=== PATIENT | male | born 1980 | race Caucasian/White ===

== ENCOUNTER 2017-11-10 17:09 | Emergency (ER) | payer OTHER ==
[2017-11-10] MEDS ORDERED: KETOROLAC 30 MG/ML 1 ML VIAL IVP STA (17:47)
[2017-11-10] MEDS ORDERED: SODIUM CHLORIDE 0.9% 1,000 ML IV ONE (17:47)
--- NOTE | 2017-11-10 17:57 | ED ---
Fever HPI - General Chief Complaint: Fever Stated Complaint: Flu Time Seen by Provider: 11/10/17 17:20 Source: patient Mode of arrival: ambulatory Limitations: no limitations - History of Present Illness Initial Comments: 37-year-old male patient presents to the emergency department today for evaluation of fever and joint pain. Patient states that symptoms started suddenly yesterday. States that he has shooting pains radiating from every joint in his body. He states that he has had fevers, he has been taking Excedrin Migraine to help with his symptoms. He states that he feels generally unwell doesn't feel like eating. He states he has been having shaking chills since yesterday. he reports also nasal congestion and sore throat. He denies any vomiting, diarrhea, abdominal pain, or difficulty with urination or bowel movements. Patient denies any recent rash, shortness breath, chest pain, back pain, numbness, tingling, dizziness, weakness, hematuria, dysuria, urinary urgency, urinary frequency, visual changes, or any other complaints. - Related Data Home Medications Medication Instructions Recorded Confirmed Aspirin/Acetaminophen/Caffeine 3 tab PO DAILY PRN 11/10/17 11/10/17 [Excedrin Migraine Caplet] Previous Rx's Medication Instructions Recorded Azithromycin [Zithromax Z-pack] 0 mg PO DIRECTED #6 tab 11/10/17 predniSONE 20 mg PO BID #6 tab 11/10/17 traMADol HCl [Ultram] 50 mg PO Q6H PRN #20 tab 11/10/17 Allergies Allergy/AdvReac Type Severity Reaction Status Date / Time Penicillins Allergy Unknown Verified 11/10/17 17:27 Review of Systems ROS Statement: Those systems with pertinent positive or pertinent negative responses have been documented in the HPI. ROS Other: All systems not noted in ROS Statement are negative. 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 Vital signs upon presentation are temperature 99.7F, pulse 68, respirations 24, blood pressure 143/68, pulse ox 99% on room air.) Eye exam: Present: normal appearance, PERRL, EOMI. Absent: scleral icterus, conjunctival injection, periorbital swelling ENT exam: Present: normal exam, mucous membranes moist, TM's normal bilaterally. Absent: normal oropharynx (oropharyngeal erythema, tonsillar hypertrophy, positive tonsillar exudate.) Neck exam: Present: normal inspection. Absent: tenderness, meningismus, lymphadenopathy Respiratory exam: Present: normal lung sounds bilaterally. Absent: respiratory distress, wheezes, rales, rhonchi, stridor Cardiovascular Exam: Present: regular rate, normal rhythm, normal heart sounds. Absent: systolic murmur, diastolic murmur, rubs, gallop, clicks GI/Abdominal exam: Present: soft, normal bowel sounds. Absent: distended, tenderness, guarding, rebound, rigid Neurological exam: Present: alert, oriented X3, CN II-XII intact Psychiatric exam: Present: normal affect, normal mood Skin exam: Present: warm, dry, intact, normal color. Absent: rash Course Vital Signs 11/10/17 17:20 Temperature 99.7 F H Pulse Rate 68 Respiratory 24 Rate Blood Pressure 143/68 O2 Sat by Pulse 99 Oximetry Medical Decision Making - Medical Decision Making 37-year-old male patient presented to the emergency department today for evaluation of generalized body aches and fever. Physical examination did reveal pharyngeal erythema with tonsillar exudate. No lymphadenopathy was noted. Lungs are clear to auscultation with good air movement. Abdomen is soft and nontender. Patient was given IV fluids and Toradol and exhibited only mild improvement in symptoms. We will treat for tonsillitis with azithromycin. He is connected be given prednisone and Ultram for pain relief. He is instructed to follow-up with his primary care physician or return here if his symptoms do not improve. He is instructed to return here immediately for any other new, worsening, or concerning symptoms. He verbalizes understanding and agrees with this plan. - Lab Data Lab Results 11/10/17 11/10/17 Range/Units 18:05 18:05 Influenza Type A RNA Not Detected (Not Detectd) Influenza Type B (PCR) Not Detected (Not Detectd) Group A Strep Rapid Negative (Negative) - Radiology Data Radiology results: report reviewed, image reviewed Two-view x-ray of the chest shows no focal airspace opacity, pleural effusion, or pneumothorax. The cardiac silhouette size is within normal limits. The osseous structures are intact. Impression by Dr. August shows no suspicious acute bony process. Disposition Clinical Impression: Tonsillitis, Body aches Disposition: HOME SELF-CARE Condition: Good Instructions: Fever in Adults (ED), Tonsillitis (ED) Additional Instructions: Increase fluids. Rest. Complete medications as directed. Follow-up with her primary care physician or return here for recheck if symptoms aren't improved. Return here immediately for any other new, worsening, or concerning symptoms. Prescriptions: Azithromycin [Zithromax Z-pack] 0 mg PO DIRECTED #6 tab predniSONE 20 mg PO BID #6 tab Referrals: None,Stated [Primary Care Provider] - 1-2 days Time of Disposition: 19:21
--- NOTE | 2017-11-10 19:01 | XR ---
EXAMINATION TYPE: XR chest 2V DATE OF EXAM: 11/10/2017 COMPARISON: NONE HISTORY: Chest pain for water. Fever and body aches per patient. TECHNIQUE: Frontal and lateral views of the chest are obtained. FINDINGS: There is no focal air space opacity, pleural effusion, or pneumothorax seen. The cardiac silhouette size is within normal limits. The osseous structures are intact. IMPRESSION: No suspicious acute pulmonary process.
[2017-11-10] MEDS ORDERED: traMADol 50 MG TAB PO STA (19:19)
[2017-11-10] MEDS ORDERED: predniSONE 20 MG TAB PO STA (19:19)
[2017-11-10 19:48] VITALS: BP 142/64; PULSE 80; RESP 18; TEMP 98.7
== END 2017-11-10 19:48 | disposition home or self-care (01) ==
LOC: EC 17:09
DX: J03.90 Acute tonsillitis, unspecified (principal); M79.1 Myalgia; Z87.891 Personal history of nicotine dependence; Z88.0 Allergy status to penicillin
CPT/HCPCS: 87081; 87430; 87502; 71046; 99283; 96374; 96361; J1885; J7512

== ENCOUNTER 2017-12-17 14:01 | Emergency (ER) | payer OTHER ==
[2017-12-17 14:11] VITALS: BP 109/59; PULSE 52; RESP 18; TEMP 97
--- NOTE | 2017-12-17 14:47 | ED ---
General Adult HPI - General Chief complaint: Recheck/Abnormal Lab/Rx Stated complaint: Face swelling/ tooth was just pulled Time Seen by Provider: 12/17/17 14:35 Source: patient, RN notes reviewed Mode of arrival: ambulatory Limitations: no limitations - History of Present Illness Initial comments: 37-year-old male presents to the emergency department with a chief complaint of lightheadedness. Patient states he had his way home he is felt kind of lightheaded he felt like he might pass out. He states he did not pass out. They state they were driving by the Hospital so they decided to come in. He states that this time he is having no symptoms. No chest pain or nausea breath with the incident. He states that there was no fever or chills. He states that he still numb the left side of his face from the procedure. He denies any fever or chills. He denies any health history. They were concerned because of the lightheadedness so they thought that they should be seen. He states that this time he is back to normal like home.Patient denies any recent fever, chills , shortness of breath, chest pain, back pain, abdominal pain, nausea vomiting, numbness or tingling, dysuria or hematuria, constipation or diarrhea, headaches or visual changes, or any other current symptoms. - Related Data Home Medications Medication Instructions Recorded Confirmed Aspirin/Acetaminophen/Caffeine 3 tab PO DAILY PRN 11/10/17 12/17/17 [Excedrin Migraine Caplet] Clindamycin [Cleocin] 300 mg PO Q6H 12/17/17 12/17/17 Ibuprofen [Motrin Ib] 400 mg PO Q6HR PRN 12/17/17 12/17/17 Allergies Allergy/AdvReac Type Severity Reaction Status Date / Time Penicillins Allergy Unknown Verified 12/17/17 14:40 Review of Systems ROS Statement: Those systems with pertinent positive or pertinent negative responses have been documented in the HPI. ROS Other: All systems not noted in ROS Statement are negative. 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 Absent: tenderness, meningismus, lymphadenopathy Respiratory exam: Present: normal lung sounds bilaterally. Absent: respiratory distress, wheezes, rales, rhonchi, stridor Cardiovascular Exam: Present: regular rate, normal rhythm, normal heart sounds. Absent: systolic murmur, diastolic murmur, rubs, gallop, clicks GI/Abdominal exam: Present: soft, normal bowel sounds. Absent: distended, tenderness, guarding, rebound, rigid Neurological exam: Present: alert, oriented X3 Psychiatric exam: Present: normal affect, normal mood Skin exam: Present: warm, dry, intact, normal color. Absent: rash Course Vital Signs 12/17/17 14:07 Temperature 97 F L Pulse Rate 52 L Respiratory 18 Rate Blood Pressure 109/59 O2 Sat by Pulse 100 Oximetry Medical Decision Making - Medical Decision Making 37-year-old male presents for lightheadedness following a dental procedure. At this time the patient was offered EKG lab work chest x-ray to further evaluate his lightheadedness. At this time we discussed the could be related to the per the previous procedure however could be related to the thinks as well. He states he's feeling much better she feels if it was related to the procedure and he would just like to go home. This time patient is asymptomatic no significant health history. This and we discussed we can discharge him. We did discuss however return parameters and follow-up. We did discuss additional testing and all questions. He stated he understood and he is agreement this plan. He will be discharged. Disposition Clinical Impression: Lightheadedness Disposition: HOME SELF-CARE Condition: Stable Instructions: Lightheadedness (ED) Additional Instructions: Please use medication as discussed. Please follow up with family doctor if symptoms have not improved over the next two days. Please return to the emergency room if your symptoms increase or worsen or for any other concerns. Referrals: Natalie Bloom MD [STAFF PHYSICIAN] - 1-2 days Time of Disposition: 14:47
== END 2017-12-17 14:56 | disposition home or self-care (01) ==
LOC: EC 14:01
DX: R42 Dizziness and giddiness (principal); R20.0 Anesthesia of skin; Z87.891 Personal history of nicotine dependence; Z88.0 Allergy status to penicillin; Z86.11 Personal history of tuberculosis
CPT/HCPCS: 99283

== ENCOUNTER 2023-09-26 09:41 | Emergency (ER) | payer OTHER ==
[2023-09-26 10:13] VITALS: BP 113/82; RESP 22; TEMP 98.1
[2023-09-26] MEDS ORDERED: SODIUM CHLORIDE 0.9% 1,000 ML IV STA (10:14)
[2023-09-26] MEDS ORDERED: DEXAMETHASONE SOD PHOSPHATE 10 MG/ML 1 ML VIAL IVP STA (10:14)
[2023-09-26] MEDS ORDERED: ONDANSETRON 4 MG/2 ML VIAL IVP STA (10:14)
[2023-09-26] MEDS ORDERED: KETOROLAC 15 MG/ML 1 ML VIAL IVP STA (10:14)
--- NOTE | 2023-09-26 10:28 | ED ---
SOB HPI - General Chief Complaint: Shortness of Breath Stated Complaint: nausea,coughing,dizzy Time Seen by Provider: 09/26/23 10:06 Source: patient, RN notes reviewed Mode of arrival: ambulatory Limitations: no limitations - History of Present Illness Initial Comments: This is a 43-year-old male who presents to the emergency department for coughing, congestion, and shortness of breath. States that he had generalized upper respiratory symptoms for a couple of days, however today he started to experience shortness of breath, nausea, abdominal pain, and body aches. States that his and children tested positive for influenza A earlier this week. However he notes that symptoms feel similar to when he had COVID-19 previously. Patient states "I feel so bad I cannot take care of my children". MD Complaint: shortness of breath, cough - Related Data Home Medications Medication Instructions Recorded Confirmed Aspirin/Acetaminophen/Caffeine 3 tab PO DAILY PRN 11/10/17 12/17/17 [Excedrin Migraine Caplet] Clindamycin [Cleocin] 300 mg PO Q6H 12/17/17 12/17/17 Ibuprofen [Motrin Ib] 400 mg PO Q6HR PRN 12/17/17 12/17/17 Previous Rx's Medication Instructions Recorded Albuterol Sulfate [Albuterol 1 - 2 puff PO Q4-6H PRN #8.5 gm 09/26/23 Sulfate Hfa] Oseltamivir [Tamiflu] 75 mg PO Q12HR 5 Days #10 cap 09/26/23 Allergies Allergy/AdvReac Type Severity Reaction Status Date / Time Penicillins Allergy Unknown Verified 09/26/23 09:57 Review of Systems ROS Statement: Those systems with pertinent positive or pertinent negative responses have been documented in the HPI. ROS Other: All systems not noted in ROS Statement are negative. 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 Absent: respiratory distress, wheezes, rales, rhonchi, stridor Cardiovascular Exam: Present: regular rate, normal rhythm, normal heart sounds. Absent: systolic murmur, diastolic murmur, rubs, gallop, clicks Neurological exam: Present: alert, oriented X3, CN II-XII intact Psychiatric exam: Present: normal affect, normal mood Skin exam: Present: warm, dry, intact, normal color. Absent: rash Course Vital Signs 09/26/23 09/26/23 09/26/23 09:55 11:58 12:07 Temperature 98.1 F Pulse Rate 96 77 77 Respiratory 22 Rate Blood Pressure 113/82 O2 Sat by Pulse 98 Oximetry Medical Decision Making - Medical Decision Making This is a 43-year-old male who presents to the emergency department for shortness of breath, coughing, and congestion. Was pt. sent in by a medical professional or institution? @ -No Did you speak to anyone other than the patient for history? @ -No Did you review nursing and triage notes? @ -Yes, and I agree, it is accurate with regards to the patient's symptoms. Were old charts reviewed? @ -No Differential Diagnosis? @ -Differential Dyspnea: Coronary syndrome, arrhythmia, tamponade, asthma, COPD, pulmonary embolism, pneumonia, pneumothorax, pulmonary effusion, anaphylaxis, diabetic ketoacidosis, flailed chest, pulmonary contusion, diaphragmatic rupture, anemia, neuromuscular, this is not meant to be an all-inclusive list. EKG interpreted by me (3pts min.)? @ -Not obtained X-rays interpreted by me (1pt min.)? @ -Chest x-ray obtained, my interpretation identifies no localized consolidations or infiltrates. CT interpreted by me (1pt min.)? @ -Not obtained U/S interpreted by me (1pt. min.)? @ -Not obtained What testing was considered but not performed? (CT, X-rays, U/S, labs)? Why? @ -None What meds were considered but not given? Why? @ -None Did you discuss the management of the patient with other professionals? @ -No Did you reconcile home meds? @ -No Was smoking cessation discussed for >3mins.? @ -No Was critical care preformed (if so, how long)? @ -No Were there social determinants of health that impacted care today? How? (Homelessness, low income, unemployed, alcoholism, drug addiction, transportation, low edu. Level, literacy, decrease access to med. care, care home, rehab)? @ -No Was there de-escalation of care discussed even if they declined? (Discuss DNR or withdrawal of care, Hospice)? @ -No What co-morbidities impacted this encounter? (DM, HTN, Smoking, COPD, CAD, Cancer, CVA, Hep., AIDS, mental health diagnosis, sleep apnea, morbid obesity)? @ -None Was patient admitted / discharged? @ -Discharged. Patient positive for influenza A. Chest x-ray reveals no acute process. Patient treated with IV fluids, Zofran, Toradol, and Decadron, which he states was significantly helpful for both his pain and breathing. He was also given a DuoNeb breathing treatment, which he felt was further beneficial. We discussed the possibility of Tamiflu, and the patient requested to proceed. Rx for Tamiflu and an albuterol inhaler provided with dosing instructions reviewed. Otherwise advised to continue with supportive care. Patient discharged home in stable condition. Undiagnosed new problem with uncertain prognosis? @ -None Drug Therapy requiring intensive monitoring for toxicity (Heparin, Nitro, Insulin, Cardizem)? @ -None Were any procedures done? @ -None Diagnosis/symptom? @ -Influenza A Acute, or Chronic, or Acute on Chronic? @ -Acute Uncomplicated (without systemic symptoms) or Complicated (systemic symptoms)? @ -Uncomplicated Side effects of treatment? @ -None Exacerbation, Progression, or Severe Exacerbation] @ -Not applicable Poses a threat to life or bodily function? @ -No Return precautions reviewed in depth, the patient is instructed to return to the emergency department with any new, worsening, or concerning symptoms. Patient verbalized understanding. This case was discussed in detail with the attending ED physician, Dr. Barnes. Presentation, findings, and treatment plan discussed in detail as well. - Lab Data Lab Results 09/26/23 Range/Units 10:27 Influenza Type A (PCR) Detected A (Not Detectd) Influenza Type B (PCR) Not Detected (Not Detectd) RSV (PCR) Not Detected (Not Detectd) SARS-CoV-2 (PCR) Not Detected (Not Detectd) - Radiology Data Radiology results: report reviewed, image reviewed Disposition Clinical Impression: Influenza A Disposition: HOME SELF-CARE Instructions (If sedation given, give patient instructions): Influenza (ED) Additional Instructions: Return to the emergency department with any new, worsening, or concerning symptoms. Take the Tamiflu as prescribed for 5 days. You can use the Albuterol inhaler every 4-6 hours as needed for shortness of breath. Alternate with ibuprofen and Tylenol as needed for fevers and body aches. Make sure that you remain well-hydrated and get plenty of rest. Prescriptions: Albuterol Sulfate [Albuterol Sulfate Hfa] 1 - 2 puff PO Q4-6H PRN #8.5 gm PRN Reason: Shortness Of Breath Oseltamivir [Tamiflu] 75 mg PO Q12HR 5 Days #10 cap Is patient prescribed a controlled substance at d/c from ED?: No Referrals: Nonstaff,Physician [REFERRING] - 1-2 days
--- NOTE | 2023-09-26 11:08 | XR ---
EXAMINATION TYPE: XR chest 2V DATE OF EXAM: 09/26/2023 COMPARISON: 11/10/2017 HISTORY: 43 year-old male shortness of breath, difficulty in breathing TECHNIQUE: PA and lateral views FINDINGS: The cardiomediastinal silhouette, aorta, and pulmonary vasculature are within normal limits. Lungs an d pleural spaces are clear. IMPRESSION: No acute cardiopulmonary process.
[2023-09-26] MEDS ORDERED: IPRATROPIUM-ALBUTEROL 3 ML NEB INHALATION STA (11:10)
[2023-09-26 12:05] VITALS: PULSE 77
== END 2023-09-26 12:28 | disposition home or self-care (01) ==
LOC: EC 09:41
DX: J10.1 Influenza due to other identified influenza virus with other respiratory manifestations (principal); F12.90 Cannabis use, unspecified, uncomplicated; Z79.82 Long term (current) use of aspirin; Z88.0 Allergy status to penicillin; Z86.59 Personal history of other mental and behavioral disorders; Z20.822 Contact with and (suspected) exposure to COVID-19
CPT/HCPCS: 94640; 87636; 71046; 99285; 96374; 96375 ×2; 96361; J1100; J2405; J1885